=== PATIENT | male | born 1960 | race Asian ===

== ENCOUNTER 2023-10-31 16:41 | Inpatient (IN) | payer BC ==
[2023-10-31] VITALS (17 sets, daily range): BP systolic 111–131; BP diastolic 96–110; PULSE 57–121; RESP 10–20; TEMP 36.3068–36.3918; O2SAT 97–100
[~2023-10-31] VITALS: Ht 165.1 cm; Wt 75.8 kg
[~2023-10-31 16:41] MED LIST: AMLO5TAB4 PO; LOSA25TA26 PO
[2023-10-31] MEDS: HEPARIN 5000 UNITS/ML VIAL IV ONE ×2 (16:51→17:15)
[2023-10-31] MEDS ORDERED: LIDOCAINE HCL 1% 20ML VIAL ONE (16:56)
[2023-10-31] MEDS ORDERED: IODIXANOL 320MG/ML 100 ML BOTTLE IV ONE ×2 (16:56→17:51)
[2023-10-31] MEDS: MORPHINE SULFATE 4 MG/ML INJ (FOR IV/IM USE) IM ONE (17:09)
[2023-10-31] MEDS ORDERED: FENTANYL CITRATE/PF 50MCG/ML 2ML VIAL ONE (17:10)
[2023-10-31] MEDS ORDERED: MIDAZOLAM HCL 2 MG/2 ML VIAL ONE (17:10)
[2023-10-31] MEDS ORDERED: HEPARIN 1000 UNITS/ML 10ML ONE (17:10)
[2023-10-31] MEDS ORDERED: ATROPINE SULFATE 1MG/10ML SYR ONE ×2 (17:16→17:23)
[2023-10-31 17:32] LABS: BASOPHILS % 0.5 % (0.0-2.0); EOSINOPHILS % 1.8 % (0.0-5.0); HEMATOCRIT. 43.7 % (42.0-52.0); HEMOGLOBIN. 14.9 g/dL (14.0-18.0); MEAN CORPUSCULAR HEMOGLOBIN 33.7 pg (28.0-32.0); MEAN CORPUSCULAR VOLUME 99.1 fL (80.0-94.0); MEAN PLATELET VOLUME 7.8 fl (7.4-10.4); NEUTROPHILS % 33.7 % (40.0-76.0); PLATELET 236 x1000/uL (130-400); RED BLOOD CELL COUNT 4.41 mill/uL (4.7-6.1); RED CELL DISTRIBUTION WIDTH 13.1 % (11.6-14.6); WHITE BLOOD COUNT 9.8 x1000/uL (4.5-11.0)
[2023-10-31 17:38] LABS: CHLORIDE 109 mEq/L (98-107); SODIUM 143 mEq/L (136-145)
[2023-10-31 17:39] LABS: CALCIUM 8.9 mg/dL (8.7-10.4); CARBON DIOXIDE 26 mEq/L (21-32)
[2023-10-31 17:41] LABS: INR 0.9; PARTIAL THROMBOPLASTIN TIME 21.6 sec (23.4-31.0); PROTHROMBIN TIME 10.3 sec (9.6-11.0)
[2023-10-31 17:44] LABS: CREATININE 0.9 mg/dL (0.6-1.3); GLUCOSE 102 mg/dL (70-105); UREA NITROGEN BLOOD 12 mg/dL (9-23)
[2023-10-31 17:45] LABS: TROPONIN I HIGH SENSITIVITY 51 ng/L (3.0-53)
[2023-10-31 17:46] LABS: ALANINE AMINOTRANSFERASE 18 IU/L (10-49); ASPARTATE AMINOTRANSFERASE 18 IU/L (<34); BILIRUBIN DIRECT 0.2 mg/dL (<=3.0)
[2023-10-31 17:47] LABS: BILIRUBIN TOTAL 0.5 mg/dL (0.1-1.0); PROTEIN TOTAL 6.3 g/dL (6.0-8.3)
[2023-10-31 17:51] LABS: POTASSIUM 2.6 mEq/L (3.5-5.1)
[2023-10-31] MEDS ORDERED: ONDANSETRON HCL 4MG/2ML INJ ONE (17:54)
[2023-10-31] MEDS ORDERED: KCL 20MEQ/100ML PREMIX 200 ML IV ONE (17:58)
[2023-10-31] MEDS ORDERED: CLOPIDOGREL 75MG TABLET ONE (18:08)
[2023-10-31] MEDS ORDERED: ATROPINE SULFATE 1MG/10ML SYR IV PRN (18:15)
[2023-10-31] MEDS ORDERED: ACETAMINOPHEN 325MG TABLET PO PRN (18:15)
[2023-10-31] MEDS: ATORVASTATIN CALCIUM 40MG TABLET PO SCH (21:17)
[2023-10-31] MEDS: POTASSIUM CHLORIDE 20MEQ TABLET SR PO NR (21:17)
[2023-10-31] MEDS: KCL 20MEQ/100ML PREMIX 100 ML IV NR (21:18)
[2023-11-01] VITALS (31 sets, daily range): BP systolic 110–138; BP diastolic 64–126; PULSE 55–75; RESP 11–22; TEMP 36.3918–37.05852; O2SAT 93–100
[2023-11-01 00:52] LABS: CHLORIDE 107 mEq/L (98-107); POTASSIUM 4.4 mEq/L (3.5-5.1); SODIUM 137 mEq/L (136-145)
[2023-11-01 00:53] LABS: CALCIUM 8.4 mg/dL (8.7-10.4); CARBON DIOXIDE 25 mEq/L (21-32)
[2023-11-01 00:58] LABS: CREATININE 0.6 mg/dL (0.6-1.3); GLUCOSE 126 mg/dL (70-105); UREA NITROGEN BLOOD 8 mg/dL (9-23)
[2023-11-01] MEDS: MAGNESIUM 2 G PREMIX 50 ML IV NR (02:07)
[2023-11-01 04:57] LABS: BASOPHILS % 0.7 % (0.0-2.0); HEMATOCRIT. 41.9 % (42.0-52.0); HEMOGLOBIN. 14.6 g/dL (14.0-18.0); LYMPHOCYTES % 24.8 % (20.0-50.0); MEAN CORPUSCULAR HEMOGLOBIN 34.4 pg (28.0-32.0); MEAN CORPUSCULAR HGB CONC 34.8 g/dL (31.0-37.0); MEAN CORPUSCULAR VOLUME 98.8 fL (80.0-94.0); MEAN PLATELET VOLUME 7.5 fl (7.4-10.4); MONOCYTES % 8.9 % (2.0-8.0); NEUTROPHILS % 64.6 % (40.0-76.0); PLATELET 214 x1000/uL (130-400); RED BLOOD CELL COUNT 4.24 mill/uL (4.7-6.1); RED CELL DISTRIBUTION WIDTH 13.4 % (11.6-14.6); WHITE BLOOD COUNT 7.8 x1000/uL (4.5-11.0)
[2023-11-01] MEDS ORDERED: KCL 20MEQ/100ML PREMIX 100 ML IV PRN (05:00)
[2023-11-01 05:05] LABS: CHLORIDE 108 mEq/L (98-107); POTASSIUM 3.9 mEq/L (3.5-5.1); SODIUM 138 mEq/L (136-145)
[2023-11-01 05:06] LABS: CALCIUM 8.5 mg/dL (8.7-10.4); CARBON DIOXIDE 26 mEq/L (21-32)
[2023-11-01 05:11] LABS: CREATININE 0.7 mg/dL (0.6-1.3); GLUCOSE 152 mg/dL (70-105)
[2023-11-01 05:12] LABS: LDL CHOLESTEROL 78 mg/dL (5-100); TRIGLYCERIDE 170 mg/dL (0-150); UREA NITROGEN BLOOD 8 mg/dL (9-23)
[2023-11-01 05:13] LABS: CHOLESTEROL 141 mg/dL (<200); HDL CHOLESTEROL 43 mg/dL (>55)
[2023-11-01 05:45] LABS: TROPONIN I HIGH SENSITIVITY 5679 ng/L (3.0-53)
[2023-11-01] MEDS ORDERED: ENOXAPARIN 80MG/0.8ML SYR SUBCUT SCH (06:00)
[2023-11-01] MEDS ORDERED: NALOXONE HCL 0.4MG/ML VIAL IV PRN (07:30)
[2023-11-01] MEDS ORDERED: LOSARTAN 25 MG TABLET PO SCH (09:00)
[2023-11-01] MEDS: ASPIRIN 81MG EC TABLET PO SCH (10:30)
[2023-11-01] MEDS: AMLODIPINE 5MG TABLET PO SCH (10:31)
[2023-11-01] MEDS: CLOPIDOGREL 75MG TABLET PO SCH (10:31)
[2023-11-01] MEDS: PANTOPRAZOLE 40MG DR TABLET PO SCH (10:31)
[2023-11-02] VITALS: BP 105/71; PULSE 62; RESP 16; TEMP 36.89184; O2SAT 98
[2023-11-02 04:00] VITALS: BP 106/59; PULSE 63; RESP 19; TEMP 36.6696; O2SAT 96
[2023-11-02 06:49] LABS: BASOPHILS % 0.8 % (0.0-2.0); DIFFERENTIAL COMMENT 0; EOSINOPHILS % 2.1 % (0.0-5.0); HEMATOCRIT. 45.6 % (42.0-52.0); HEMOGLOBIN. 15.4 g/dL (14.0-18.0); LYMPHOCYTES % 25.3 % (20.0-50.0); MEAN CORPUSCULAR HEMOGLOBIN 33.9 pg (28.0-32.0); MEAN CORPUSCULAR HGB CONC 33.8 g/dL (31.0-37.0); MEAN CORPUSCULAR VOLUME 100.2 fL (80.0-94.0); MEAN PLATELET VOLUME 7.9 fl (7.4-10.4); MONOCYTES % 10.5 % (2.0-8.0); NEUTROPHILS % 61.3 % (40.0-76.0); PLATELET 211 x1000/uL (130-400); RED BLOOD CELL COUNT 4.56 mill/uL (4.7-6.1); RED CELL DISTRIBUTION WIDTH 13.3 % (11.6-14.6); WHITE BLOOD COUNT 7.6 x1000/uL (4.5-11.0)
[2023-11-02 07:06] LABS: CHLORIDE 108 mEq/L (98-107); SODIUM 140 mEq/L (136-145)
[2023-11-02 07:08] LABS: CALCIUM 8.7 mg/dL (8.7-10.4); CARBON DIOXIDE 25 mEq/L (21-32)
[2023-11-02 07:12] LABS: CREATININE 0.9 mg/dL (0.6-1.3)
[2023-11-02 07:13] LABS: GLUCOSE 91 mg/dL (70-105); UREA NITROGEN BLOOD 8 mg/dL (9-23)
[2023-11-02 07:57] VITALS: BP 126/83; PULSE 64; RESP 17; TEMP 37.00296; O2SAT 98
[2023-11-02 12:00] VITALS: BP 115/82; PULSE 71; RESP 19; TEMP 36.9474; O2SAT 98
[2023-11-02 16:00] VITALS: BP 94/77; PULSE 62; RESP 18; TEMP 37.00296; O2SAT 92
[2023-11-02] MEDS: MORPHINE SULFATE 2 MG/ML INJ (NOT FOR IM USE) IV PRN (19:01)
[2023-11-02] MEDS ORDERED: NITROGLYCERIN 0.4MG TABLET SL SL PRN (19:15)
[2023-11-02 20:00] VITALS: BP 125/93; PULSE 68; RESP 22; TEMP 36.61404; O2SAT 97
[2023-11-02] MEDS: METOPROLOL TARTRATE 25MG TABLET PO SCH (20:14)
[2023-11-02 20:37] LABS: TROPONIN I HIGH SENSITIVITY 1818 ng/L (3.0-53)
[2023-11-02] MEDS: NITROGLYCERIN OINT 1GM/INCH UDPKT TD SCH (22:28)
[2023-11-03] VITALS (11 sets, daily range): BP systolic 107–135; BP diastolic 74–92; PULSE 56–75; RESP 13–23; TEMP 36.44736–37.00296; O2SAT 94–99
[2023-11-03 06:50] LABS: CHLORIDE 108 mEq/L (98-107); POTASSIUM 3.7 mEq/L (3.5-5.1); SODIUM 139 mEq/L (136-145)
[2023-11-03 06:51] LABS: CALCIUM 8.8 mg/dL (8.7-10.4); CARBON DIOXIDE 24 mEq/L (21-32)
[2023-11-03 06:56] LABS: CREATININE 0.8 mg/dL (0.6-1.3); GLUCOSE 98 mg/dL (70-105); UREA NITROGEN BLOOD 10 mg/dL (9-23)
[2023-11-03 07:13] LABS: TROPONIN I HIGH SENSITIVITY 1609 ng/L (3.0-53)
[2023-11-03 07:30] LABS: BASOPHILS % 0.9 % (0.0-2.0); EOSINOPHILS % 2.9 % (0.0-5.0); HEMATOCRIT. 44.5 % (42.0-52.0); HEMOGLOBIN. 15.1 g/dL (14.0-18.0); LYMPHOCYTES % 30.4 % (20.0-50.0); MEAN CORPUSCULAR HEMOGLOBIN 33.7 pg (28.0-32.0); MEAN CORPUSCULAR HGB CONC 33.8 g/dL (31.0-37.0); MEAN CORPUSCULAR VOLUME 99.7 fL (80.0-94.0); MEAN PLATELET VOLUME 7.9 fl (7.4-10.4); MONOCYTES % 11.4 % (2.0-8.0); NEUTROPHILS % 54.4 % (40.0-76.0); PLATELET 213 x1000/uL (130-400); RED BLOOD CELL COUNT 4.47 mill/uL (4.7-6.1); RED CELL DISTRIBUTION WIDTH 13.3 % (11.6-14.6); WHITE BLOOD COUNT 6.5 x1000/uL (4.5-11.0)
[2023-11-03] MEDS: SODIUM CHLORIDE 0.45% 1,000 ML IV SCH (10:54)
[2023-11-03] MEDS ORDERED: IODIXANOL 320 MG/ML 150ML BOTTLE IV ONE (11:59)
[2023-11-03] MEDS ORDERED: HEPARIN 1000 UNITS/ML 10ML ONE (11:59)
[2023-11-03] MEDS ORDERED: LIDOCAINE HCL 1% 20ML VIAL ONE (11:59)
[2023-11-03] MEDS ORDERED: EPINEPHRINE 0.1MG/ML (1:10,000) 10ML SYR ONE (12:00)
[2023-11-03] MEDS ORDERED: MIDAZOLAM HCL 2 MG/2 ML VIAL ONE (12:53)
[2023-11-03] MEDS ORDERED: FENTANYL CITRATE/PF 50MCG/ML 2ML VIAL ONE (12:53)
[2023-11-03] MEDS ORDERED: ATROPINE SULFATE 1MG/10ML SYR IV PRN (14:15)
[2023-11-03] MEDS ORDERED: ACETAMINOPHEN 325MG TABLET PO PRN (14:15)
[2023-11-04 04:56] VITALS: BP 132/94; PULSE 72; RESP 19; TEMP 37.00296; O2SAT 96
[2023-11-04 06:50] LABS: CARBON DIOXIDE 25 mEq/L (21-32); CHLORIDE 107 mEq/L (98-107); POTASSIUM 3.9 mEq/L (3.5-5.1); SODIUM 139 mEq/L (136-145)
[2023-11-04 06:51] LABS: CALCIUM 9.1 mg/dL (8.7-10.4)
[2023-11-04 06:55] LABS: CREATININE 0.7 mg/dL (0.6-1.3)
[2023-11-04 06:56] LABS: GLUCOSE 103 mg/dL (70-105); UREA NITROGEN BLOOD 7 mg/dL (9-23)
[2023-11-04 07:17] LABS: BASOPHILS % 0.8 % (0.0-2.0); EOSINOPHILS % 2.6 % (0.0-5.0); HEMATOCRIT. 44.7 % (42.0-52.0); HEMOGLOBIN. 14.9 g/dL (14.0-18.0); LYMPHOCYTES % 25.7 % (20.0-50.0); MEAN CORPUSCULAR HGB CONC 33.4 g/dL (31.0-37.0); MEAN CORPUSCULAR VOLUME 98.8 fL (80.0-94.0); MEAN PLATELET VOLUME 7.9 fl (7.4-10.4); MONOCYTES % 10.7 % (2.0-8.0); NEUTROPHILS % 60.2 % (40.0-76.0); PLATELET 214 x1000/uL (130-400); RED BLOOD CELL COUNT 4.52 mill/uL (4.7-6.1); WHITE BLOOD COUNT 7.6 x1000/uL (4.5-11.0)
[2023-11-04 08:00] VITALS: BP 131/90; PULSE 71; RESP 18; TEMP 36.89184; O2SAT 98
[2023-11-04 12:00] VITALS: BP 133/90; PULSE 69; RESP 17; TEMP 36.78072; O2SAT 99
[2023-11-04 12:57] VITALS: BP 133/90; PULSE 88; TEMP 98.4
[2023-11-04] MEDS ORDERED: CLOP-31 PO (13:15)
[2023-11-04] MEDS ORDERED: METO25TA6 PO (13:15)
[2023-11-04] MEDS ORDERED: ASPI-1406 PO (13:15)
[2023-11-04] MEDS ORDERED: LIP40 PO (13:15)
== END 2023-11-04 16:27 | disposition home or self-care (01) | DRG 321 ==
LOC: ER 16:41 → CVICU 18:48 → 3WST 11-01 13:02
PROVIDERS: ADMIT Internal Medicine; ATTEND Internal Medicine
PROC: 027034Z Dilation of Coronary Artery, One Artery with Drug-eluting Intraluminal Device, Percutaneous Approach (ICD-10-PCS; principal; 2023-10-31)
PROC: 4A023N7 Measurement of Cardiac Sampling and Pressure, Left Heart, Percutaneous Approach (ICD-10-PCS; 2023-10-31)
PROC: B2111ZZ Fluoroscopy of Multiple Coronary Arteries using Low Osmolar Contrast (ICD-10-PCS; 2023-10-31)
PROC: 027136Z Dilation of Coronary Artery, Two Arteries with Three Drug-eluting Intraluminal Devices, Percutaneous Approach (ICD-10-PCS; 2023-11-03)
PROC: B2111ZZ Fluoroscopy of Multiple Coronary Arteries using Low Osmolar Contrast (ICD-10-PCS; 2023-11-03)
DX: I21.19 ST elevation (STEMI) myocardial infarction involving other coronary artery of inferior wall (principal); I48.0 Paroxysmal atrial fibrillation; E87.6 Hypokalemia; E78.5 Hyperlipidemia, unspecified; I10 Essential (primary) hypertension; R73.9 Hyperglycemia, unspecified; E78.1 Pure hyperglyceridemia; I25.10 Atherosclerotic heart disease of native coronary artery without angina pectoris; Z79.02 Long term (current) use of antithrombotics/antiplatelets; Z79.82 Long term (current) use of aspirin; Z79.899 Other long term (current) drug therapy; Z95.5 Presence of coronary angioplasty implant and graft
CPT/HCPCS: 36415; 71045; 80048; 80061; 80076; 83735; 84484; 85025; 85347; 86850; 86900; 92928; 92929; 93005; 93454; 93458; 99291; C1769; C1874; C1887; C1893; J0461; J1644; J2250; J2270; J2405; J3010; J3475; J3480; J3490; Q9967